=== PATIENT | female | born 1945 | race Caucasian/White ===

== ENCOUNTER → 2017-06-04 | Outpatient (CLI) | payer MEDICARE, BC ==
--- NOTE | 2017-06-04 13:16 | XR ---
EXAMINATION TYPE: XR chest 2V DATE OF EXAM: 06/04/2017 COMPARISON: NONE TECHNIQUE: PA and lateral views submitted. HISTORY: Shortness of breath FINDINGS: The lungs are clear and there is no pneumothorax, pleural effusion, or focal pneumonia. Hyperinflat ion noted. Degenerative change spine. No overt failure. Atherosclerotic change aorta. Surgical change in the abdomen noted. Arthropathy of the shoulders. IMPRESSION: 1. No acute process. Correlate for COPD.
== END | disposition home or self-care (01) ==
LOC: RADXRYALE 13:03
PROVIDERS: ATTEND Internal Medicine Sleep Medicine
DX: R05 Cough (principal); J45.909 Unspecified asthma, uncomplicated
CPT/HCPCS: 71020; 82785; 86001; 86003; 86606; 86609

== ENCOUNTER → 2017-09-04 | Outpatient (CLI) | payer MEDICARE, BC ==
--- NOTE | 2017-09-04 15:58 | XR ---
Lumbosacral spine HISTORY: Low back pain, strain, sciatica, M 54.31 5 views of the lumbosacral spine. There is anterolisthesis grade 1 to grade 2 at L5-S1. Mild loss of disc height L5-S1. Mild multilevel spondylosis. Bone mineralization is reduced. Lumbar vertebral bodies show preserved height. Mild ant erior wedging noted at T11. Sclerosis present in the posterior elements of the lower lumbar spine. At herosclerotic vascular calcifications are present. Surgical clips noted in the upper abdomen. No evid ent spondylolysis. IMPRESSION: Spondylolisthesis L5-S1, degenerative disc disease. Facet arthropathy. Osteoporosis. Poss ible osteoporotic compression fracture L4.
== END ==
LOC: RADXRYALE 11:31
PROVIDERS: ATTEND Internal Medicine
DX: M43.17 Spondylolisthesis, lumbosacral region (principal); M51.37 Other intervertebral disc degeneration, lumbosacral region; M81.0 Age-related osteoporosis without current pathological fracture; M54.31 Sciatica, right side
CPT/HCPCS: 72110

== ENCOUNTER → 2018-07-01 | Outpatient (CLI) | payer MEDICARE, BC ==
--- NOTE | 2018-07-02 11:19 | XR ---
Right foot HISTORY: Right foot pain, right heel pain 3 views of the right foot There are degenerative changes at the tarsometatarsal joint, metatarsophalangeal joint of the first d igit, intertarsal joints. There is a plantar calcaneal spur. Alignment is maintained. Bone mineraliza tion is reduced. There is enthesophyte present at the insertion of the Achilles tendon, possible calc ification in the tendon and along the plantar aponeurosis. IMPRESSION: Possible calcific tendinitis, plantar calcaneus spur, osteoarthritis.
== END | disposition home or self-care (01) ==
LOC: RADXRYALE 15:50
PROVIDERS: ATTEND Internal Medicine
DX: M79.671 Pain in right foot (principal)

== ENCOUNTER 2018-10-21 19:32 | Emergency (ER) | payer MEDICARE, BC ==
[2018-10-21 20:27] LABS: ALT 29 U/L (9-52); AST 24 U/L (14-36); Albumin 4.4 g/dL (3.5-5.0); Alkaline Phosphatase 99 U/L (38-126); Anion Gap 8 mmol/L; Blood Urea Nitrogen 11 mg/dL (7-17); Carbon Dioxide 27 mmol/L (22-30); Chloride 109 mmol/L (98-107); Glucose 103 mg/dL (74-99); Potassium 3.9 mmol/L (3.5-5.1); Sodium 144 mmol/L (137-145); Total Bilirubin 0.6 mg/dL (0.2-1.3); Total Protein 7.3 g/dL (6.3-8.2)
[2018-10-21 20:28] LABS: INR 0.9 (<1.2); Partial Thromboplastin Time 23.6 sec (22.0-30.0); Prothrombin Time 9.8 sec (9.0-12.0)
[2018-10-21 20:31] LABS: Basophils # (A) 0.1 k/uL (0-0.2); Basophils % (A) 1 %; Eosinophils # (A) 0.1 k/uL (0-0.7); Eosinophils % (A) 2 %; HGB 13.3 gm/dL (11.4-16.0); Lymphocytes # (A) 2.1 k/uL (1.0-4.8); Lymphocytes % (A) 31 %; MCH 31.7 pg (25.0-35.0); MCHC 32.5 g/dL (31.0-37.0); MCV 97.6 fL (80.0-100.0); Mean Platelet Volume 6.6; Monocytes # (A) 0.4 k/uL (0-1.0); Monocytes % (A) 5 %; Neutrophils # (A) 4.1 k/uL (1.3-7.7); Neutrophils % (A) 60 %; Platelet Count 251 k/uL (150-450); RDW 13.9 % (11.5-15.5); WBC 6.8 k/uL (3.8-10.6)
--- NOTE | 2018-10-21 21:18 | XR ---
EXAMINATION TYPE: XR chest 2V DATE OF EXAM: 10/21/2018 COMPARISON: 06/04/2017 HISTORY: Short of breath TECHNIQUE: Frontal and lateral views of the chest are obtained. FINDINGS: There is no heart failure nor confluent pneumonic infiltrate. Costophrenic angles are beverly r. Heart appears normal. IMPRESSION: No active cardiopulmonary disease. No change.
[2018-10-21] MEDS ORDERED: MAG HYDROX/AL HYDROX/SIMETH 30 ML CUP PO PRN (21:47)
--- NOTE | 2018-10-21 21:52 | ED ---
General Adult HPI - General Chief complaint: Shortness of Breath Stated complaint: HALEY Time Seen by Provider: 10/21/18 20:44 Source: patient, family, RN notes reviewed Mode of arrival: ambulatory Limitations: no limitations - History of Present Illness Initial comments: Chief complaint and history of present illness this is a 73-year-old female here with a complaint of feeling short of breath. This sensation comes on rather quickly. She also describes significant amount of anxiety and stress at home because of her who has Alzheimer's. Patient doesn't past history of asthma. She states her albuterol inhaler doesn't help much. She also complains of increased gas and when she drinks water she can burp to feel better. She otherwise denies any headache no chest pain no fevers and no other problems. - Related Data Home Medications Medication Instructions Recorded Confirmed Albuterol Sulfate [Proventil Hfa] 2 puff INHALATION RT-Q8H 10/21/18 10/21/18 Alendronate Sodium [Fosamax] 70 mg PO TU 10/21/18 10/21/18 Cetirizine HCl [Zyrtec] 10 mg PO DAILY 10/21/18 10/21/18 FLUoxetine HCL [PROzac] 20 mg PO DAILY 10/21/18 10/21/18 Levothyroxine Sodium [Synthroid] 75 mcg PO DAILY 10/21/18 10/21/18 Meloxicam [Mobic] 15 mg PO DAILY 10/21/18 10/21/18 Montelukast [Singulair] 10 mg PO HS 10/21/18 10/21/18 amLODIPine BESYLATE [Norvasc] 5 mg PO DAILY 10/21/18 10/21/18 Previous Rx's Medication Instructions Recorded Famotidine [Pepcid] 20 mg PO DAILY #30 tablet 10/21/18 Lisinopril [Prinivil] 5 mg PO DAILY #30 tablet 10/21/18 Allergies Allergy/AdvReac Type Severity Reaction Status Date / Time No Known Allergies Allergy Verified 10/21/18 21:48 Review of Systems ROS Statement: Those systems with pertinent positive or pertinent negative responses have been documented in the HPI. Review of systems. Currently no headache no visual acuity changes no chest pain no shortness of breath no GI/ problems no neuro deficits. All systems are reviewed. Past medical problems significant for having been diagnosed with asthma year ago. Currently not wheezing. Also history of hyperlipidemia, hypertension and thyroid disorder. Her surgeries include a , cholecystectomy, hysterectomy and vein stripping. Patient denies any ALLERGIES. Nonsmoker nondrinker. Family history noncontributory. ROS Other: All systems not noted in ROS Statement are negative. Past Medical History Past Medical History: Asthma, Hyperlipidemia, Hypertension, Thyroid Disorder History of Any Multi-Drug Resistant Organisms: None Reported Past Surgical History: Section, Cholecystectomy, Hysterectomy Additional Past Surgical History / Comment(s): Veins stripped Past Psychological History: No Psychological Hx Reported Smoking Status: Never smoker Past Alcohol Use History: None Reported Past Drug Use History: None Reported General Exam - General Exam Comments Initial Comments: General: The patient is awake and alert, presents emergency room with on-again off-again shortness of breath. Patient describes episodes of mild anxiety or panic. Not treated with her albuterol inhaler. Also complains of gaseous distention and feels better after she burps. Patient has no other complaints. Her vital signs show temperature 97.8 pulse 68 respiratory rate 20 pulse ox 96% room air blood pressure 190/83. This be repeated. Eye: Pupils are equal, , extra-ocular movements are intact; there is normal conjunctiva bilaterally. No signs of icterus. Ears, nose, mouth and throat: There are moist mucous membranes Neck: The neck is supple, there is no tenderness Cardiovascular: There is a regular rate and rhythm. No murmur, rub or gallop is appreciated. Respiratory: Lungs are clear to auscultation, respirations are non-labored, breath sounds are equal. No wheezes, stridor, rales, or rhonchi. Gastrointestinal: Soft, non-distended, non-tender abdomen without masses or organomegaly noted. There is no rebound or guarding present. No CVA tenderness. Bowel sounds are unremarkable. Back: Back nontender No neuro deficits Skin: Skin is warm and dry and no rashes or lesions are noted. Psychiatric: Cooperative, appropriate mood & affect, normal judgment. Limitations: no limitations Course Vital Signs 10/21/18 10/21/18 10/21/18 19:37 21:03 22:22 Temperature 97.8 F Pulse Rate 68 82 57 L Respiratory 20 18 16 Rate Blood Pressure 191/83 160/94 173/93 O2 Sat by Pulse 98 96 97 Oximetry Medical Decision Making - Medical Decision Making Medical decision making; this is a 73-year-old female with several complaints. One that she might be anxious or having mild panic attacks because of stress associated with the was Alzheimer's. She reports she has on-again off- again shortness of breath a concomitant go within seconds. Her inhaler does not necessarily help. She also has increased stomach gas. Past history includes cholecystectomy no other problems. We discussed the patient's blood pressure being elevated. On emergency room the patient was given lisinopril 5 mg she will be given a prescription lisinopril taking daily and a follow-up with family physician. Initial blood pressure was 191/83 on repeat it was 170/83. The patient will also be placed on Pepcid to be taken as directed. - Lab Data Result diagrams: 10/21/18 20:10 10/21/18 20:10 Lab Results 10/21/18 10/21/18 10/21/18 Range/Units 20:10 20:10 20:10 WBC 6.8 (3.8-10.6) k/uL RBC 4.20 (3.80-5.40) m/uL Hgb 13.3 (11.4-16.0) gm/dL Hct 41.0 (34.0-46.0) % MCV 97.6 (80.0-100.0) fL MCH 31.7 (25.0-35.0) pg MCHC 32.5 (31.0-37.0) g/dL RDW 13.9 (11.5-15.5) % Plt Count 251 (150-450) k/uL Neutrophils % 60 % Lymphocytes % 31 % Monocytes % 5 % Eosinophils % 2 % Basophils % 1 % Neutrophils # 4.1 (1.3-7.7) k/uL Lymphocytes # 2.1 (1.0-4.8) k/uL Monocytes # 0.4 (0-1.0) k/uL Eosinophils # 0.1 (0-0.7) k/uL Basophils # 0.1 (0-0.2) k/uL PT 9.8 (9.0-12.0) sec INR 0.9 (<1.2) APTT 23.6 (22.0-30.0) sec Sodium 144 (137-145) mmol/L Potassium 3.9 (3.5-5.1) mmol/L Chloride 109 H (98-107) mmol/L Carbon Dioxide 27 (22-30) mmol/L Anion Gap 8 mmol/L BUN 11 (7-17) mg/dL Creatinine 0.62 (0.52-1.04) mg/dL Est GFR (CKD-EPI)AfAm >90 (>60 ml/min/1.73 sqM) Est GFR (CKD-EPI)NonAf 89 (>60 ml/min/1.73 sqM) Glucose 103 H (74-99) mg/dL Calcium 10.0 (8.4-10.2) mg/dL Total Bilirubin 0.6 (0.2-1.3) mg/dL AST 24 (14-36) U/L ALT 29 (9-52) U/L Alkaline Phosphatase 99 (38-126) U/L Troponin I (0.000-0.034) ng/mL Total Protein 7.3 (6.3-8.2) g/dL Albumin 4.4 (3.5-5.0) g/dL 10/21/18 Range/Units 20:10 WBC (3.8-10.6) k/uL RBC (3.80-5.40) m/uL Hgb (11.4-16.0) gm/dL Hct (34.0-46.0) % MCV (80.0-100.0) fL MCH (25.0-35.0) pg MCHC (31.0-37.0) g/dL RDW (11.5-15.5) % Plt Count (150-450) k/uL Neutrophils % % Lymphocytes % % Monocytes % % Eosinophils % % Basophils % % Neutrophils # (1.3-7.7) k/uL Lymphocytes # (1.0-4.8) k/uL Monocytes # (0-1.0) k/uL Eosinophils # (0-0.7) k/uL Basophils # (0-0.2) k/uL PT (9.0-12.0) sec INR (<1.2) APTT (22.0-30.0) sec Sodium (137-145) mmol/L Potassium (3.5-5.1) mmol/L Chloride (98-107) mmol/L Carbon Dioxide (22-30) mmol/L Anion Gap mmol/L BUN (7-17) mg/dL Creatinine (0.52-1.04) mg/dL Est GFR (CKD-EPI)AfAm (>60 ml/min/1.73 sqM) Est GFR (CKD-EPI)NonAf (>60 ml/min/1.73 sqM) Glucose (74-99) mg/dL Calcium (8.4-10.2) mg/dL Total Bilirubin (0.2-1.3) mg/dL AST (14-36) U/L ALT (9-52) U/L Alkaline Phosphatase (38-126) U/L Troponin I <0.012 (0.000-0.034) ng/mL Total Protein (6.3-8.2) g/dL Albumin (3.5-5.0) g/dL Disposition Clinical Impression: Gastritis, Anxiety, Hypertension Disposition: HOME SELF-CARE Condition: Fair Instructions (If sedation given, give patient instructions): Anxiety (ED), Hypertension (ED) Additional Instructions: Take lisinopril as directed. Follow-up with family physician for evaluation of essential hypertension. Take Pepcid for discomfort of stomach and increased gasses use [id number] Gas-X or Mylanta to control stomach gas. Prescriptions: Famotidine [Pepcid] 20 mg PO DAILY #30 tablet Lisinopril [Prinivil] 5 mg PO DAILY #30 tablet Is patient prescribed a controlled substance at d/c from ED?: No Referrals: Mami May MD [Primary Care Provider] - 1-2 days Time of Disposition: 22:37
[2018-10-21] MEDS ORDERED: LISINOPRIL 5 MG TAB PO STA (22:26)
[2018-10-21 23:03] VITALS: BP 175/99; PULSE 91; RESP 18; TEMP 98.3
== END 2018-10-21 23:00 | disposition home or self-care (01) ==
LOC: EC 19:32
DX: K29.70 Gastritis, unspecified, without bleeding (principal); I10 Essential (primary) hypertension; F41.9 Anxiety disorder, unspecified; R06.02 Shortness of breath; J45.909 Unspecified asthma, uncomplicated; E07.9 Disorder of thyroid, unspecified; Z90.49 Acquired absence of other specified parts of digestive tract; Z90.710 Acquired absence of both cervix and uterus; Z79.890 Hormone replacement therapy; Z79.1 Long term (current) use of non-steroidal anti-inflammatories (NSAID); Z79.899 Other long term (current) drug therapy
CPT/HCPCS: 36415; 71046; 80053; 84484; 85025; 85610; 85730; 93005; 99285

== ENCOUNTER 2020-01-23 08:24 | Inpatient (IN) | payer BC, MEDICARE ==
[2020-01-23] MEDS ORDERED: IV FLUID CONTINUATION 1,000 ML IV ONE (09:00)
[2020-01-23] MEDS ORDERED: LIDOCAINE 1% INJ 10MG/ML (20 ML MDV) ONE (09:13)
[2020-01-23] MEDS ORDERED: VERAPAMIL 2.5 MG/ML 2 ML AMP ONE (09:13)
[2020-01-23] MEDS: VERAPAMIL SYRINGE (5 MG/10 ML) INTRAARTER ONE ×2 (09:52→10:17)
[2020-01-23] MEDS ORDERED: BIVALIRUDIN BOLUS 250 MG/50 ML IV ONE (09:52)
[2020-01-23] MEDS ORDERED: BIVALIRUDIN 250 MG in SODIUM CHLORIDE 0.9% 50 ML IV ONE (09:53)
[2020-01-23] MEDS ORDERED: NITROGLYCERIN SL TABS 0.4 MG TAB SUBLINGUAL ONE ×2 (09:57→09:58)
[2020-01-23] MEDS ORDERED: CLOPIDOGREL 75 MG TAB ONE (09:58)
[2020-01-23] MEDS ORDERED: CLOPIDOGREL 75 MG TAB PO ONE (09:58)
[2020-01-23] MEDS ORDERED: niCARdipine 25 MG/10 ML VIAL ONE (10:08)
[2020-01-23] MEDS ORDERED: NITROGLYCERIN 1000MCG/10ML SYRINGE INTRACORON ONE (10:15)
[2020-01-23] MEDS ORDERED: IOPAMIDOL-370 100ML BTL INJ ONE (10:16)
[2020-01-23] MEDS ORDERED: MAG HYDROX/AL HYDROX/SIMETH 30 ML CUP PO PRN (10:26)
[2020-01-23] MEDS ORDERED: ZOLPIDEM 5 MG TAB PO PRN (10:26)
[2020-01-23] MEDS ORDERED: RX INFO: IV CONTRAST WAS GIVEN 1 EACH MISC MISCELLANE PRN (10:26)
[2020-01-23] MEDS ORDERED: NITROGLYCERIN SL TABS 0.4 MG TAB SUBLINGUAL PRN (10:26)
[2020-01-23] MEDS ORDERED: ATROPINE SULFATE 0.1 MG/ML 10ML SYRINGE IV PRN (10:26)
--- NOTE | 2020-01-23 13:11 | PTCA ---
PERCUTANEOUSTRANS CORORONARY ANGIOGRAPHY DATE OF SERVICE: 01/23/2020. PROCEDURE: PTCA and stenting of proximal left anterior descending coronary artery with a drug- eluting stent. PERFORMED BY: Dr. Pancho Avalos. Moderate conscious sedation time was 29 minutes. Patient was administered Versed. Oxygen saturation, hemodynamics and EKG were monitored closely. CLINICAL INFORMATION: Mrs. Samanta Willett is a 74-year-old lady, a patient of Dr. May with history of hypertension, hypothyroidism, who presented to [facility] for a stress test which was positive with antral wall ischemia. Had a cardiac cath by Dr. Piña, which revealed a 70% to 80% proximal eccentric lesion involving the LAD. No other significant disease in other vessels. She was advised intervention and she was transferred by [facility] ambulance with a sheath in the right radial artery. I discussed with her the rationale, risks, benefits, options. She understood all details and wished to proceed with the procedure. PROCEDURE NOTE: The existing 6-Romanian introducer in the right radial artery was used to perform the procedure. I used a JL3.5 guide catheter to cannulate the left coronary artery and a run-through wire to cross the lesion. A 2.5 caliber 15 mm NC Trek balloon was used to pre-dilate the lesion. I deployed a 3.25 caliber 12 mm long Xience stent. Excellent angiographic result was achieved, but distal to the stent at the origin of a septal branch, there was still some haziness. I addressed this with a 3.0 caliber 8 mm Xience stent. Both stents were deployed at 12-13 atmospheres. Patient had chest pain and anterior ST elevation. Excellent angiographic result was achieved. No complications. The patient received Angiomax bolus and infusion as per protocol. She also received a total of 600 mg of Plavix, 300 mg here in [facility] and another 300 mg at [facility] prior to transfer. Results were discussed with the patient and her granddaughter, Tina, who is a nurse in [facility]. Patient will be discharged tomorrow if she remains stable. She was advised regarding the importance of dual antiplatelet therapy. MMODL / IJN: [id number] /
[2020-01-23 14:36] VITALS: BMI 31.3
[2020-01-23] MEDS: ALBUTEROL NEBULIZED 2.5 MG/3 ML INHALATION SCH (16:37)
[2020-01-23] MEDS ORDERED: ATORVASTATIN 80 MG TAB PO SCH (21:00)
[2020-01-23] MEDS: METOPROLOL TARTRATE 12.5 MG TAB PO SCH (22:33)
[2020-01-23] MEDS: SODIUM CHLORIDE 0.9% 1,000 ML IV SCH (22:35)
[2020-01-24] MEDS: ALBUTEROL NEBULIZED 2.5 MG/3 ML INHALATION SCH ×2 (00:04→08:55)
[2020-01-24 06:24] VITALS: TEMP 98.3
[2020-01-24] MEDS ORDERED: LEVOTHYROXINE 75 MCG TAB PO SCH (06:30)
[2020-01-24 06:59] LABS: Basophils # (A) 0.1 k/uL (0-0.2); Basophils % (A) 1 %; Eosinophils # (A) 0.1 k/uL (0-0.7); Eosinophils % (A) 1 %; HCT 38.3 % (34.0-46.0); HGB 11.9 gm/dL (11.4-16.0); Lymphocytes % (A) 24 %; MCH 30.5 pg (25.0-35.0); MCHC 31.2 g/dL (31.0-37.0); Mean Platelet Volume 8.3; Monocytes # (A) 0.5 k/uL (0-1.0); Monocytes % (A) 6 %; Neutrophils # (A) 5.5 k/uL (1.3-7.7); Neutrophils % (A) 67 %; Platelet Count 222 k/uL (150-450); RDW 13.6 % (11.5-15.5); WBC 8.2 k/uL (3.8-10.6)
[2020-01-24 07:18] LABS: African American GFR (CKD) >90 (>60 ml/min/1.73 sqM); Anion Gap 5 mmol/L; Blood Urea Nitrogen 11 mg/dL (7-17); Calcium 8.8 mg/dL (8.4-10.2); Carbon Dioxide 22 mmol/L (22-30); Chloride 112 mmol/L (98-107); Glucose 103 mg/dL (74-99); Non-African American GFR(CKD) >90 (>60 ml/min/1.73 sqM); Sodium 139 mmol/L (137-145)
[2020-01-24] MEDS ORDERED: FAMOTIDINE 20 MG TAB PO SCH (09:00)
[2020-01-24] MEDS ORDERED: CLOPIDOGREL 75 MG TAB PO SCH (09:00)
[2020-01-24] MEDS ORDERED: LOSARTAN 50 MG TAB PO SCH (09:00)
[2020-01-24] MEDS ORDERED: amLODIPine 5 MG TAB PO SCH (09:00)
[2020-01-24] MEDS ORDERED: ASPIRIN 81 MG PO SCH (09:00)
[2020-01-24] MEDS ORDERED: MELOXICAM 7.5 MG TAB PO SCH (09:00)
[2020-01-24] MEDS: SODIUM CHLORIDE 0.9% 1,000 ML IV SCH (09:00)
[2020-01-24] MEDS ORDERED: FLUoxetine HCL 20 MG CAP PO SCH (09:00)
[2020-01-24] MEDS: METOPROLOL TARTRATE 12.5 MG TAB PO SCH (09:58)
--- NOTE | 2020-01-24 10:30 | P.PN ---
Subjective Progress Note Date: 01/24/20 Discharge note This is a 74 stroke female, patient of Dr. Piña with history of hypertension, hypothyroidism, hyperlipidemia, who initially presented to [facility] for a stress test which came back to be positive, she underwent a cardiac catheterization by Dr. Piña which revealed an eccentric lesion in the LAD. She was transferred here to [facility] where she underwent angioplasty and stenting of the LAD. Her EKG was reviewed this morning which showed a normal sinus rhythm with no changes from post-PCI. Hemodynamically she is stable. Denies any chest discomfort and her breathing is stable. Objective - Vital Signs Vital signs: Vital Signs Temp 98.3 F 01/24/20 04:00 Pulse 71 01/24/20 04:00 Resp 14 01/24/20 04:00 BP 122/59 01/24/20 04:00 Pulse Ox 95 01/24/20 04:00 Intake & Output 01/23/20 01/24/20 01/24/20 18:59 06:59 18:59 Intake Total 300 360 Balance 300 360 Weight 77.7 kg 78.4 kg Intake: IV 180 Oral 120 360 Other: # Voids 0 3 1 - Exam PHYSICAL EXAMINATION: GENERAL:74-year-old female in no acute distress at the time of my examination HEENT: Head is atraumatic, normocephalic. Pupils equal, round. Sclera anicteric. Conjunctiva are clear. Mucous membranes of the mouth are moist. Neck is supple. There is no elevated jugular venous pressure.no carotid bruit is heard. HEART EXAMINATION: [Heart S1, S2 normal. No murmur or gallop heard.] CHEST EXAMINATION:[ Lungs are clear to auscultation and precussion. No chest wall tenderness is noted on palpation or with deep breathing.] ABDOMEN: [ Soft, nontender. Bowel sounds are heard. No organomegaly noted]. EXTREMITIES:[ 2+ peripheral pulses with no evidence of peripheral edema and no calf tenderness noted].right radial site clean and dry, good distal pulse. NEUROLOGIC [patient is awake, alert and oriented 3] . - Labs CBC & Chem 7: 01/24/20 06:29 01/24/20 06:29 Labs: Abnormal Lab Results - Last 24 Hours (Table) 01/24/20 Range/Units 06:29 Chloride 112 H (98-107) mmol/L Glucose 103 H (74-99) mg/dL Assessment and Plan Plan: assessment and plan #1 status post angioplasty and stenting of the LAD #2 hyperlipidemia #3 hypertension #4 hypothyroidism Plan Patient will be discharged home today. Follow-up appointment in the office with Dr. Piña in one week.discharge medications include Norvasc 5 mg daily, Ecotrin 81 mg daily, Lipitor 80 mg daily, Plavix 75 mg daily, Prozac 20 mg daily, Synthroid 75 g daily, Cozaar 50 mg daily, metoprolol 12-1/2 mg twice a day,sublingual nitroglycerin as needed for chest pain. DNP note has been reviewed, I agree with a documented findings and plan of care. Patient was seen and examined.
[2020-01-24 10:47] VITALS: BP 137/73; PULSE 63; RESP 19
[2020-01-27] MEDS ORDERED: NON FORMULARY DRUG (Alendronate Sodium [Fosamax] 70 MG) PO SCH (10:25)
== END 2020-01-24 11:22 | disposition home or self-care (01) | DRG 247 ==
LOC: 3SCARD 09:00
PROVIDERS: ADMIT Internal Medicine Cardiovascular Disease; ATTEND Internal Medicine Cardiovascular Disease
PROC: 027034Z Dilation of Coronary Artery, One Artery with Drug-eluting Intraluminal Device, Percutaneous Approach (ICD-10-PCS; principal; 2020-01-23 09:00)
DX: I25.110 Atherosclerotic heart disease of native coronary artery with unstable angina pectoris (principal); I10 Essential (primary) hypertension; E03.9 Hypothyroidism, unspecified; E78.5 Hyperlipidemia, unspecified
CPT/HCPCS: 80048; 85025; 94640

== ENCOUNTER → 2021-06-02 | Outpatient (CLI) | payer MEDICARE ==
--- NOTE | 2021-06-02 15:22 | BD ---
EXAMINATION TYPE: Axial Bone Density DATE OF EXAM: 06/02/2021 COMPARISON: NONE CLINICAL HISTORY: Postmenopausal screening Height: 60.5 Weight: 176.0 FRAX RISK QUESTIONS: Alcohol (3 or more units per day): no Family History (Parent hip fracture): no Glucocorticoids (More than 3mos): no (Ex: prednisone, prednisolone, methylprednisolone, dexamethasone, and hydrocortisone). History of Fracture in Adulthood: yes Secondary Osteoporosis: 1. Type 1 Diabetes: no 2. Hyperthyroidism: no 3. Menopause before 45: no 4. Malnutrition: no 5. Chronic liver disease: no Rheumatoid Arthritis: no Current Tobacco Use: no RISK FACTORS HISTORY OF: Spine Fracture: lumbar When: -2020 Surgery to Spine/Hip(right/left)/Wrist (right/left): no Family History of Osteoporosis: yes Active: yes Diet low in dairy products/other sources of calcium: yes Postmenopausal woman: yes Lost more than 2 inches in height since high school: yes MEDICATIONS: heart meds Thyroid Medications: levothyroxine How Lon years Additional History: EXAM MEASUREMENTS: Bone mineral densitometry was performed using the [employer] System. Bone mineral density about the R hip (g/cm2): 0.670 Bone mineral density about the L hip (g/cm2): 0.735 T Score values are as follows: -----R Neck: -2.6 -----L Neck: -2.2 -----R Total: -2.6 -----L Total: -2.2 Bone mineral density has: baseline Bone mineral density about the L Wrist (g/cm2): 0.458 T Score values are as follows: -----Dist. R+U: -4.7 -----Prox. R+U: -2.3 -----Radius total: -3.6 Bone mineral density has: baseline IMPRESSION: Osteoporosis (T Score less than -2.5). There is increased fracture risk and therapy is usually indicated based on age. Re-Screen 1-2 years. NOTE: T-SCORE=SD OF THE YOUNG ADULT MEAN.
== END | disposition home or self-care (01) ==
LOC: RADBDWWP 10:33
PROVIDERS: ATTEND Internal Medicine
DX: Z13.820 Encounter for screening for osteoporosis (principal); M81.0 Age-related osteoporosis without current pathological fracture; Z78.0 Asymptomatic menopausal state
CPT/HCPCS: 77080

== ENCOUNTER → 2021-11-10 | Outpatient (CLI) | payer MEDICARE ==
[~2021-11-10] MED LIST: SODIUM CHLORIDE 0.9% 500 ML 500 ML in EMPTY BAG 1 BAG IV PRN; ZOLEDRONIC ACID 5 MG in SODIUM CHLORIDE 0.9% 100 ML IV NR
[2021-11-10 12:57] VITALS: BP 136/79; PULSE 54; RESP 15; TEMP 98.2
== END ==
LOC: PROCWHC3 12:38
PROVIDERS: ATTEND Internal Medicine
DX: M81.0 Age-related osteoporosis without current pathological fracture (principal)
CPT/HCPCS: 96365; J3489

== ENCOUNTER 2022-11-08 10:18 | Day surgery (SDC) | payer MEDICARE ==
[2022-11-02 14:51] VITALS: BMI 33.2
[~2022-11-08 10:18] MED LIST changes: +ALPRAZolam 0.25 MG TAB PO PRN; +ALPRAZolam 0.5 MG TAB PO PRN; +ASPIRIN 325 MG TAB PO STA; +ATORVASTATIN 80 MG TAB PO STA; +HEPARIN SODIUM,PORCINE 10,000 UNIT in SODIUM CHLORIDE 0.9% 1,000 ML IRRIGATION PRN; +HEPARIN SODIUM,PORCINE 2,500 UNIT in SODIUM CHLORIDE 0.9% 250 ML IRRIGATION PRN; +NITROGLYCERIN SL TABS 0.4 MG TAB SUBLINGUAL PRN; +SODIUM CHLORIDE 0.9% 1,000 ML in EMPTY BAG 1 BAG IV SCH; -SODIUM CHLORIDE 0.9% 500 ML 500 ML in EMPTY BAG 1 BAG IV PRN; -ZOLEDRONIC ACID 5 MG in SODIUM CHLORIDE 0.9% 100 ML IV NR
[2022-11-08 10:41] VITALS: RESP 18; TEMP 98.5
[2022-11-08] MEDS ORDERED: LIDOCAINE 1% INJ 10MG/ML (20 ML MDV) ONE (13:33)
[2022-11-08] MEDS ORDERED: VERAPAMIL 2.5 MG/ML 2 ML AMP ONE (13:33)
[2022-11-08] MEDS ORDERED: fentaNYL (PF) 50 MCG/ML 2 ML AMP ONE (13:34)
[2022-11-08] MEDS ORDERED: LIDOCAINE 1% INJ 10MG/ML (5 ML VIAL-PF) SQ ONE (13:35)
[2022-11-08] MEDS ORDERED: fentaNYL (PF) 50 MCG/ML 2 ML AMP IV ONE (13:36)
[2022-11-08] MEDS ORDERED: VERAPAMIL SYRINGE (5 MG/10 ML) INTRAARTER ONE (13:38)
[2022-11-08] MEDS ORDERED: HEPARIN SODIUM 1,000 UN/ML (10ML VL) ONE (13:39)
[2022-11-08] MEDS ORDERED: HEPARIN SODIUM 1,000 UN/ML (10ML VL) IV ONE (13:40)
[2022-11-08] MEDS ORDERED: IOPAMIDOL-370 125ML BTL INJ ONE (13:45)
[2022-11-08] MEDS ORDERED: RX INFO: IV CONTRAST WAS GIVEN 1 EACH MISC MISCELLANE PRN (13:51)
--- NOTE | 2022-11-08 13:57 | P.CARDCATH ---
Date of Procedure: 11/08/22 Description of Procedure: Cardiac Catheterization: The patient is a 77-year-old female with known history of hypertension, hyperlipidemia, CAD and stenting in 2020 who presents with symptoms of dyspnea and an abnormal MPI. Recommendations were made regarding cardiac catheterization, the risks and the complications were discussed with the patient who is in full understanding and agreement. Procedure Description: Patient was brought to laboratory geneticist in fasting semi-sedated state after receiving Fentanyl and Benadryl achieiving moderate conscious sedated state. Using Xylocaine Anesthesia and Seldinger technique, a 6-Surinamese sheath was introduced in the right radial artery . Subsequently, selective coronary angiography was performed using a 5-Surinamese 3.5 bend Viri catheter. Multiple views of the coronary artery including hemiaxial views were obtained. The right Viri catheter was used to cross the aortic valve and LVEDP was calculated. Following that, catheter and sheath were removed. Hemostasis was obtained with deployment of TR band . There was no immediate complication. Patient was returned to room in stable condition. Of note, the patient received a total of 4000 units of intravenous heparin as well as intra-arterial verapamil. Findings: Left main: This is a large size vessel, bifurcating into LAD and left circumflex, the left main has no high-grade stenosis LAD: This is a large size vessel, reaching to the apex tortuous in the midsegment, the LAD and branches have no evidence of high-grade stenosis, the stented segment proximally is patent with minimal in-stent restenosis of 10%. Left circumflex: This is a nondominant vessel, giving rise to a large obtuse margin branch, the left circumflex and its branches have no evidence of high- grade stenosis RCA: This is a dominant vessel, bifurcating into PDA and PLV, the RCA and its branches have no evidence of high-grade stenosis Left Ventriculogram: Not performed Hemodynamics: There was no gradient across the aortic valve, LVEDP was 16-20 mmHg Conclusion: 1. Patent stent in the LAD with no significant in-stent restenosis 2. Right dominance 3. No evidence of high-grade stenosis in the RCA and left circumflex. Recommendations: The patient will continue in therapy with the aggressive coronary risks modifications. The findings and the recommendations were discussed with the patient she is in full understanding and agreement. Duration of sedation is 12 minutes.
[2022-11-08] MEDS ORDERED: SODIUM CHLORIDE 0.9% 1,000 ML IV SCH (14:00)
[2022-11-08 16:25] VITALS: BP 116/57; PULSE 54
[2022-11-08] MEDS ORDERED: ATORVASTATIN 80 MG TAB PO SCH (21:00)
[2022-11-08] MEDS ORDERED: METOPROLOL TARTRATE 12.5 MG TAB PO SCH (21:00)
[2022-11-09] MEDS ORDERED: amLODIPine 5 MG TAB PO SCH (09:00)
[2022-11-09] MEDS ORDERED: LEVOTHYROXINE 75 MCG TAB PO SCH (09:00)
[2022-11-09] MEDS ORDERED: ASPIRIN 81 MG PO SCH (09:00)
[2022-11-09] MEDS ORDERED: LOSARTAN 50 MG TAB PO SCH (09:00)
== END 2022-11-08 17:08 | disposition home or self-care (01) ==
LOC: CATHCVL 10:18
PROVIDERS: ATTEND Internal Medicine Interventional Cardiology
DX: R06.02 Shortness of breath (principal); I25.10 Atherosclerotic heart disease of native coronary artery without angina pectoris
CPT/HCPCS: 93458; C1769 ×2; C1894; J2001; J3010; J1644; Q9967

== ENCOUNTER → 2023-06-13 | Outpatient (CLI) | payer MEDICARE ==
--- NOTE | 2023-06-13 16:20 | BD ---
EXAMINATION TYPE: Axial Bone Density DATE OF EXAM: 06/13/2023 CLINICAL HISTORY: 78 years old Female. ICD-10 CODE: N95.8 menopause Height: 4 ft 11 in Weight: 172 FRAX RISK QUESTIONS: Alcohol (3 or more units per day): no Family History (Parent hip fracture): no Glucocorticoids (More than 3mos): no (Ex: prednisone, prednisolone, methylprednisolone, dexamethasone, and hydrocortisone). History of Fracture in Adulthood: yes Secondary Osteoporosis: 1. Type 1 Diabetes: no 2. Hyperthyroidism: no 3. Menopause before 45: yes 4. Malnutrition: no 5. Chronic liver disease: no Rheumatoid Arthritis: no Current Tobacco Use: no RISK FACTORS HISTORY OF: Spine Fracture: t spine l spine When: 2018 report says possible fx Surgery to Spine/Hip(right/left)/Wrist (right/left): no Family History of Osteoporosis: yes Active: yes Diet low in dairy products/other sources of calcium: no Postmenopausal woman: yesIf Premenopausal, do you have irregular periods: Take estrogen and/or progesterone medications: no Lost more than 2 inches in height since high school: yes Frequent falls: no Poor Health: good Hyperparathyroidism: no Adrenal Insufficiency: no MEDICATIONS: Thyroid Medications: yes Which medication: levothyroxine How Long: appprox 20 years Additional Medications: levothyroxine, Cozaar, Norvasc, Lipitor0, Additional History: EXAM MEASUREMENTS: Bone mineral densitometry was performed using the [employer] Measurement System. Bone mineral density as measured about the Lumbar spine is: ----- L1-L4(G/cm2): 0.936 T Score Values are as follows: ----- L1: -2.7 ----- L2: -2.8 ----- L3: -1.5 ----- L4: -1.2 ----- L1-L4: -2.0 Z Score Values are as follows: ----- L1: -1.3 ----- L2: -1.3 ----- L3: -0.1 ----- L4: 0.2 ----- L1-L4: -0.6 lumbar was not done last time Bone mineral density about the R hip (g/cm2): 0.725 Bone mineral density about the L hip (g/cm2): 0.683 T Score values are as follows: -----R Neck: -2.3 -----L Neck: -2.6 -----R Total: -2.5 -----L Total: -2.7 Z Score values are as follows: -----R Neck: -0.4 -----L Neck: -0.7 -----R Total: -0.8 -----L Total: -1.0 Bone mineral density has: decreased -3.5 % since study of: 2020 FRAX%s: The graph provided illustrates a 26.2 % chance for a major osteoporotic fx and a 8.3 % chance for the hips probability for fx in 10 years time. IMPRESSION: Osteoporosis (T Score less than -2.5). There is increased fracture risk and therapy is usually indicated based on age. Re-Screen 1-2 years. NOTE: T-SCORE=SD OF THE YOUNG ADULT MEAN.
== END | disposition home or self-care (01) ==
LOC: RADBDWWP 14:03
PROVIDERS: ATTEND Internal Medicine
DX: M81.0 Age-related osteoporosis without current pathological fracture (principal); M85.851 Other specified disorders of bone density and structure, right thigh; N95.8 Other specified menopausal and perimenopausal disorders; Z78.0 Asymptomatic menopausal state
CPT/HCPCS: 77080

== ENCOUNTER → 2024-02-12 | Outpatient (CLI) | payer MEDICARE ==
--- NOTE | 2024-02-13 08:29 | XR ---
EXAMINATION TYPE: XR ribs RT w pa chest xray DATE OF EXAM: 02/12/2024 4:00 PM CLINICAL INDICATION:Female, 78 years old with history of [id number] INTERCOSTAL PAIN; [facility] COMPARISON: 10/21/2018 TECHNIQUE: XR ribs RT w pa chest xray; Frontal and oblique views of the ribs with frontal chest radio graph. FINDINGS: At least one rib demonstrate acute fracture on one of the oblique views in the right lower chest low. Overall, the lungs are clear. The cardiac silhouette is normal in size. The remaining os seous structures are intact. Right upper quadrant cholecystectomy clips. IMPRESSION: There is at least one mildly displaced rib fracture seen on single view.
== END | disposition home or self-care (01) ==
LOC: RADXRYALE 15:31
PROVIDERS: ATTEND Internal Medicine
DX: S22.31XA Fracture of one rib, right side, initial encounter for closed fracture (principal); R07.82 Intercostal pain